=== PATIENT | male | born 1980 | race Caucasian/White ===

== ENCOUNTER 2018-11-16 12:55 | Emergency (ER) | payer OTHER ==
[~2018-11-16] VITALS: Ht 180.3 cm; Wt 86.0 kg
[2018-11-16 12:57] VITALS: BP 134/83
== END 2018-11-16 15:53 | disposition home or self-care (01) ==
LOC: ER 14:21
DX: B35.1 Tinea unguium (principal); L90.6 Striae atrophicae
CPT/HCPCS: 99282